=== PATIENT | female | born 1955 | race Hispanic/Latino ===

== ENCOUNTER 2020-04-26 12:00 | Emergency (ER) | payer MEDICARE | END 2020-04-26 12:57 | disposition home or self-care (01) | LOC: EDH 12:00 | DX: F43.21 Adjustment disorder with depressed mood (principal); I10 Essential (primary) hypertension; K21.9 Gastro-esophageal reflux disease without esophagitis; Z88.8 Allergy status to other drugs, medicaments and biological substances | CPT/HCPCS: 84484; 87804; 93005 ==